=== PATIENT | male | born 1975 | race Caucasian/White ===

== ENCOUNTER 2016-07-09 01:50 | Emergency (ER) | payer SELFPAY ==
[2016-07-09 01:56] VITALS: BP 131/78; PULSE 98; RESP 18; TEMP 98.9; O2SAT 99
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
[2016-07-09] MEDS ORDERED: Lidocaine 1% Inj (20ml) IJ STA (02:56)
[2016-07-09] MEDS ORDERED: TDAP Vaccine 0.5 mL Syr IM ONE (02:56)
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
== END 2016-07-09 05:54 | disposition home or self-care (01) ==
LOC: H.ER 01:50
DX: S01.511A Laceration without foreign body of lip, initial encounter (principal); Y04.0XXA Assault by unarmed brawl or fight, initial encounter

== ENCOUNTER 2018-01-10 09:10 | Emergency (ER) | payer OTHER ==
[2018-01-10 09:11] VITALS: BMI 27.9
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
--- NOTE | 2018-01-10 10:48 | RAD ---
Date of service: 01/10/2018 HISTORY: chest pain/ r/o infiltrate COMPARISON: No prior. TECHNIQUE: Chest PA and lateral FINDINGS: LUNGS: No active pulmonary disease. PLEURA: No significant pleural effusion identified. No pneumothorax apparent. CARDIOVASCULAR: Normal. OSSEOUS STRUCTURES: No significant abnormalities. VISUALIZED UPPER ABDOMEN: Normal. OTHER FINDINGS: None. IMPRESSION: No acute cardiopulmonary disease appreciated.
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
--- NOTE | 2018-01-10 10:59 | CT ---
Date of service: 01/10/2018 PROCEDURE: CT HEAD WITHOUT CONTRAST. HISTORY: r/o ICH COMPARISON: Noncontrast head CT 07/09/2016. TECHNIQUE: Axial computed tomography images were obtained through the head/brain without intravenous contrast. Radiation dose: Total exam DLP = 1950.83 mGy-cm. This CT exam was performed using one or more of the following dose reduction techniques: Automated exposure control, adjustment of the mA and/or kV according to patient size, and/or use of iterative reconstruction technique. FINDINGS: Limitations: Motion artifacts. HEMORRHAGE: No intracranial hemorrhage. BRAIN: Normal sanchez-white matter differentiation and density are appreciated throughout the cerebrum and cerebellum with the brainstem appearing unremarkable as well. There is no mass effect. There is no suspicious extra-axial fluid collection and the midline brain anatomy appears diffusely unremarkable. VENTRICLES: Unremarkable. No hydrocephalus. CALVARIUM: No destructive bony lesion or displaced fracture identified including through the skullbase. However, there is a relatively large right temporal parietal subgaleal hematoma identified. PARANASAL SINUSES: Unremarkable as visualized. No significant inflammatory changes. MASTOID AIR CELLS: Unremarkable as visualized. No inflammatory changes. OTHER FINDINGS: Chronic left lamina papyracea fracture deformity. IMPRESSION: No acute intracranial findings or acute fracture of the calvarium or skullbase. Stable noncontrast head CT with exception of a large right temporoparietal subgaleal hematoma appreciated.
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
[2018-01-10 12:01] LABS: PROTHROMBIN TIME 10.6 Seconds (9.8-13.1)
[2018-01-10 12:04] LABS: PARTIAL THROMBOPLASTIN TIME 37.7 Seconds (25.6-37.1)
[2018-01-10 12:06] LABS: BASO # 0.1 K/uL (0.0-0.2); BASO % 0.4 % (0.0-2.0); EOS # 0.2 K/uL (0.0-0.7); HEMOGLOBIN 15.6 g/dL (12.0-18.0); LYMPH # 2.7 K/uL (1.0-4.3); LYMPH % 14.6 % (20.0-40.0); MEAN CORPUSCULAR HEMOGLOBIN 31.2 pg (27.0-31.0); MEAN CORPUSCULAR HGB CONC 33.6 g/dL (33.0-37.0); MEAN PLATELET VOLUME 9.7 fl (7.2-11.7); MONO % 5.5 % (0.0-10.0); NEUT # 14.6 K/uL (1.8-7.0); NEUT % 78.5 % (50.0-75.0); NRBC % 0.1 % (0.0-0.0); RED CELL DISTRIBUTION WIDTH 13.6 % (11.5-14.5); WHITE BLOOD COUNT 18.5 K/uL (4.8-10.8)
[2018-01-10 12:08] LABS: ALBUMIN 4.8 g/dL (3.5-5.0); BLOOD UREA NITROGEN 6 mg/dl (9-20); CALCIUM 8.8 mg/dL (8.4-10.2); GFR NON-AFRICAN AMERICAN > 60
[2018-01-10 12:09] LABS: ALB/GLOB RATIO 1.5 (1.0-2.1); ALT/SGPT 87 U/L (21-72); AST/SGOT 62 U/L (17-59)
[2018-01-10 15:07] VITALS: BP 115/57; PULSE 90; RESP 18; TEMP 98.3
[2018-01-17 15:49] VITALS: O2SAT 97
== END 2018-01-10 15:05 | disposition home or self-care (01) ==
LOC: H.ER 09:10
DX: S09.90XA Unspecified injury of head, initial encounter (principal); S80.11XA Contusion of right lower leg, initial encounter; Y08.89XA Assault by other specified means, initial encounter; Y92.9 Unspecified place or not applicable; F10.129 Alcohol abuse with intoxication, unspecified; Y90.7 Blood alcohol level of 200-239 mg/100 ml

== ENCOUNTER 2018-03-24 15:32 | Emergency (ER) | payer OTHER ==
[2018-03-24 15:32] VITALS: BMI 27.9
[2018-03-24 15:43] VITALS: TEMP 98.7
--- NOTE | 2018-03-24 16:07 | ED PDOC ---
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 As per EMS, patient was found drunk near a doctors office with a bottle of alcohol. Patient admits to taking shots secondary to work stress. Denies any physical complaints. Of note, patient is intoxicated, so ROS is limited along with some history. PMD: none provided Past Medical History Reviewed: Historical Data, Nursing Documentation, Vital Signs Vital Signs: Last Vital Signs Temp 98.7 F 03/24/18 15:40 Pulse 86 03/24/18 15:40 Resp 18 03/24/18 15:40 BP 121/81 03/24/18 15:40 Pulse Ox 97 03/24/18 15:40 - Surgical History Surgical History: No Surg Hx - Family History Family History: States: Unknown Family Hx - Social History Alcohol: Other (hx of ED visits secondary to ETOH) - Immunization History Hx Tetanus Toxoid Vaccination: No (not sure of last tetanus) Hx Influenza Vaccination: No Hx Pneumococcal Vaccination: No - Home Medications Home Medications: Ambulatory Orders Medication Instructions Recorded Ibuprofen [Motrin] 600 mg PO Q6 PRN #20 tab 11/19/16 No Known Home Med 12/11/16 - Allergies Allergies/Adverse Reactions: Allergies Allergy/AdvReac Type Severity Reaction Status Date / Time No Known Allergies Allergy Verified 03/24/18 15:40 Review of Systems Review Of Systems: ROS cannot be obtained secondary to pt's inabilty to answer questions. Physical Exam - Reviewed Nursing Documentation Reviewed: Yes Vital Signs Reviewed: Yes - Physical Exam Appears: Positive for: No Acute Distress (but intoxicated appearing) Skin: Positive for: Normal Color Eye Exam: Positive for: Normal appearance Cardiovascular/Chest: Positive for: Regular Rate, Rhythm Respiratory: Positive for: Normal Breath Sounds. Negative for: Respiratory Distress Extremity: Positive for: Normal ROM (of all extremities) Neurologic/Psych: Positive for: Other (slurred speech) - ECG O2 Sat by Pulse Oximetry: 97 (RA) Pulse Ox Interpretation: Normal Medical Decision Making Medical Decision Making: Time: 1600 Initial Impression: alcohol intoxication Initial Plan: --Accucheck --Observe for sobriety Scribe Attestation: Documented by Farzana Ledesma, acting as a scribe for Eliot Vegas PA-C. Provider Scribe Attestation: All medical record entries made by the Scribe were at my direction and personally dictated by me. I have reviewed the chart and agree that the record accurately reflects my personal performance of the history, physical exam, medical decision making, and the department course for this patient. I have also personally directed, reviewed, and agree with the discharge instructions and disposition. Disposition - Clinical Impression Clinical Impression: Alcohol ingestion - Patient ED Disposition Is Patient to be Admitted: No - Disposition Disposition: Routine/Home Disposition Time: 23:09 Condition: FAIR Instructions: Alcohol Poisoning (DC) Print Language: THAI
[2018-03-24 23:35] VITALS: BP 127/85; PULSE 82; RESP 17; O2SAT 99
== END 2018-03-24 23:35 | disposition home or self-care (01) ==
LOC: H.ER 15:32
DX: F10.129 Alcohol abuse with intoxication, unspecified (principal)